=== PATIENT | female | born 2000 | race Caucasian/White ===

== ENCOUNTER 2024-10-09 09:56 | Outpatient (AMB) | payer OTHER, SELFPAY ==
--- NOTE | 2024-10-09 10:07 | MHC.OFFVIS ---
Vital Signs 10/09/24 10:08 Height 5 ft 5 in Weight 217 lb BMI 36.1 BP 136/71 Blood Pressure Location Lt brachial Position Sitting Respiration 16 Pulse 116 H Pulse Source Pulse Oximeter Pulse Oximetry (%) 96 Oxygen Delivery Method Room Air Intake Visit Reasons: Worsening back pain Adolescent Medicine Specialist Required: No Allergies No Known Allergies Allergy (Verified 10/09/24 10:08) Medication List - Last Reconciled 10/09/24 by Anabel Seo LPN cetirizine (Zyrtec) 10 mg PO DAILY PRN duloxetine 90 mg PO DAILY lamotrigine (Lamictal) 100 mg PO DAILY HPI HPI Worsening back pain: Details: History of Present Illness The patient is a 23-year-old female presenting with chronic low back pain. Her pain dates back to a diagnosis of scoliosis at age 15, which has been a recurrent issue. She notes a significant increase in pain intensity since July. Initially diagnosed with scoliosis, recent exacerbations have led to consultations for the possible placement of a temporary nerve stimulation device. Described as a sharp, stabbing sensation, her pain is located over the left sacroiliac joint, reaching an intensity of 7/10, particularly in the evenings. Previously, she experienced a debilitating pain episode two years ago, successfully managed with temporary nerve stimulation, providing relief for nearly two years. Past imaging includes X-rays, a CT scan in 2022, and an MRI completed [id number]. Despite ongoing back pain, her condition showed a positive response to nerve stimulation, allowing her to avoid pain medications and maintaining mobility since then, though she now reports worsening symptoms over the past two months. Physical therapy has not provided the desired relief, and the patient is currently considering repeating nerve stimulation to alleviate her symptoms. Pain Description - Onset: Initially diagnosed with scoliosis at age 15, current worsening since July. - Quality: Sharp, stabbing sensation. - Location: Predominantly over the left sacroiliac joint region. - Intensity: 7/10, particularly severe in the evenings. - Interference: Pain affects the ability to sleep normally and daily functioning. - Previous Relief: Temporary nerve stimulation provided significant relief for almost two years. - Exacerbating Factors: Worsens in the evening. - Relieving Factors: Previous nerve stimulation was effective. Physical Exam - Appears afebrile. - Alert and oriented. - Mood and affect appropriate. - Follows and participates in conversation appropriately. - Respiratory effort is unlabored. Results - X-rays completed previously to monitor scoliosis. - CT scan performed in 2022 for scoliosis evaluation. - MRI completed in [place]. Pain Management - Affect: Chronic pain impacting the patient's ability to sleep and daily functioning. - Analgesia: Previously using meloxicam 15 mg per day, now considering repeat nerve stimulation. - Adverse Effects: None reported. - Activities of Daily Living: Pain has interfered with normal sleep and walking in past severe episodes. - Aberrant Drug Related Behaviors: None reported. Physical Exam Vital Signs: Last Vital Signs Pulse 116 H 10/09/24 10:08 Resp 16 10/09/24 10:08 BP 136/71 10/09/24 10:08 Pulse Ox 96 10/09/24 10:08 Oxygen Delivery Method Room Air 10/09/24 10:08 BMI result Body Mass Index 36.1 Assessment & Plan Assessment & Plan (1) Scoliosis: Code(s): M41.9 - Scoliosis, unspecified Category: Medical (2) Chronic pain: Code(s): G89.29 - Other chronic pain Category: Medical Plan Plan - Request insurance authorization for repeating the left L3 medial branch temporary nerve stimulation, to be followed by right side placement. - This procedure provided extensive pain relief >80% for 2 years; no new imaging required due to the similarity of current symptoms to past successful treatment. Patient was informed and verbally consented to the use of an ambient scribe for clinic note documentation during this visit. Discussion Notes During our consultation, we reviewed the patient's chronic low back pain and her history of scoliosis. I discussed the effectiveness of the previous nerve stimulation treatment, which yielded significant relief for nearly two years. Given her recurrence of symptoms, I proposed repeating the procedure. The patient was receptive to this plan and understood the potential benefits and limitations. We agreed to pursue insurance authorization for the left L3 medial branch stimulation, followed by the right side two weeks later. The patient was informed that records regarding previous device placement would aid in planning. No further diagnostic imaging is deemed necessary at this stage. Patient Instructions - We will proceed with the insurance authorization for the repeat nerve stimulation. - Follow any instructions provided by your insurance regarding this process. - Keep track of any changes in your pain and inform us of any significant changes. Coding Level of Care Code New Pt Level 4 (11395) Diagnoses Scoliosis M41.9 Chronic pain G89.29
[2024-10-09 10:08] VITALS: BP 136/71; PULSE 116; RESP 16; O2SAT 96; BMI 36.1
== END 2024-10-09 10:45 | disposition home or self-care (01) ==
LOC: HO.PMC 09:56
PROVIDERS: Visit Provider Internal Medicine
DX: M41.9 Scoliosis, unspecified (principal); G89.29 Other chronic pain
CPT/HCPCS: 99204

== ENCOUNTER → 2024-10-09 09:56 | Outpatient (BNVA) | payer OTHER, SELFPAY | PROVIDERS: Visit Provider Internal Medicine ==

== ENCOUNTER 2025-03-30 08:42 | Outpatient (AMB) | payer OTHER, SELFPAY ==
--- OUTSIDE RECORDS SUMMARY | 2025-03-30 08:46 | XMS_ITS | Clinical Summary ---
Author Organization [facility] Address [address] [address] Phone Care Team Providers Care Commercial Title Examiner Name Role Phone Pcp, Unknown Primary Care Provider Unavailabl e Social History Tobacco Use Types Packs/Day Years Used Date Smoking Tobacco: Never Assessed Education Answer Date Recorded Are you interested in more education? Not on serina e 01/04/2024 Are you concerned about learning? Not on file 01/04/2024 No 01/04/2024 No 01/04/2024 Digital Access Answer Date Recorded No 01/04/2024 No 01/04/2024 Reliable internet access at home? Not on file 01/04/2024 Device with a working camera? Not on file Comments Unknown Sex and Gender Information Value Date Recorded Sex Assigned at Not on file Legal Sex Female 1:59 PM EDT Gender Identity Not on file Sexual Orientation Not on file Plan of Treatment Health Maintenance Due Date Last Done Comments Adult Td,Tdap Booster 2001 DEPRESSION SCREENING 2013 SMOKING Hx and SMOKELESS TOB ACCO SCREENING 2014 HPV VACCINES (1 - 3-dose series) 2016 CHLAMYDIA SCREENING 2017 MENINGOCOCCAL VACCINES (B) ( 1 of 2 - Standard) 2017 HEPATITIS C SCREENING 12/17/2019 HIV ONE-TIME SCREENING (18-6 5 YEARS) 12/17/2019 PAP SMEAR 2022 INFLUENZA VACCINE (#1) 2024 COVID-19 VACCINE (2024-2 6 season) 2025 HEPATITIS A VACCINES Aged Out No long er eligible based on patient's age to complete this topic HIB VACCINES Aged Out No longer eligi ble based on patient's age to complete this topic MENINGOCOCCAL VACCINES (ACWY) Aged Out No longer eligible based on patient's age to complete this topic PNEUMOCOCCAL VACCINES (0-49 years) Aged Out No longer eligible based on patient's age to complete this topic Medical Devices Not on file Insurance [address] [address] [employer] [facility] [employer] [facility] Care Teams Commercial Title Examiner Relationship Specialty Start Date End Date Pcp, Unknown PCP - General 01/03/24 Additional Source Comments The information contained in this document represents components of the legal health record. It is not the complete legal health record.[facility]
--- NOTE | 2025-03-30 08:57 | MHC.OFFVIS ---
Vital Signs 03/30/25 08:58 Height 5 ft 5 in Weight 207 lb BMI 34.4 BP 122/66 Blood Pressure Location Rt brachial Position Sitting Respiration 16 Pulse 104 H Pulse Source Pulse Oximeter Pulse Oximetry (%) 95 Oxygen Delivery Method Room Air Intake Visit Reasons: Follow Up Back pain Boilermaker Helper Required: No Allergies No Known Allergies Allergy (Verified 03/30/25 09:00) Medication List - Last Reconciled 03/30/25 by Anabel Seo LPN duloxetine 90 mg PO DAILY HPI HPI Follow Up Back pain: Details: History of Present Illness The patient is a 24-year-old individual presenting with chronic back pain management. The patient has a history of chronic back pain, which has been persistent despite previous interventions such as cortisone injections that provided only temporary relief. The patient has also tried other modalities like SI belts and physical therapy, but these have not been effective in managing the pain. The patient has not tried acupuncture, as it was never suggested before, and is considering this as a potential option. The patient is also exploring the possibility of using a new non-opioid pain medication, Journavx, although there are concerns about long-term effects. The patient has scoliosis, which may be contributing to the back pain, and is advised to seek scoliosis-specific physical therapy for targeted management. Pain Description - Chronic back pain with previous cortisone injections providing temporary relief - Pain management attempts include SI belts and physical therapy, with limited success - Considering acupuncture as a new treatment option - Exploring new non-opioid medication, Journavx, with concerns about long-term effects Physical Exam - Appears afebrile. - Alert and oriented. - Mood and affect appropriate. - Follows and participates in conversation appropriately. Pain Management - Affect: The patient's mood is impacted by the chronic nature of the pain and the challenges in finding effective management. - Analgesia: Previous cortisone injections provided temporary relief; considering Journavx for pain management. - Adverse Effects: Concerns about long-term effects of new medication, Journavx. - Activities of Daily Living: Pain interferes with daily activities, prompting exploration of new treatment options. - Aberrant Drug Related Behaviors: No signs of medication misuse or abuse reported. Physical Exam Vital Signs: Last Vital Signs Pulse 104 H 03/30/25 08:58 Resp 16 03/30/25 08:58 BP 122/66 03/30/25 08:58 Pulse Ox 95 11/21/25 08:58 Oxygen Delivery Method Room Air 03/30/25 08:58 BMI result Body Mass Index 34.4 Assessment & Plan Assessment & Plan (1) Scoliosis: Code(s): M41.9 - Scoliosis, unspecified Category: Medical (2) Chronic pain: Code(s): G89.29 - Other chronic pain Category: Medical Plan Plan Patient was informed and verbally consented to the use of an ambient scribe for clinic note documentation during this visit. 1. Chronic Back Pain - Continue to pursue authorization for medial branch nerve stimulation. - Explore scoliosis-specific physical therapy as a targeted intervention. - Consider trial of acupuncture as a non-invasive treatment option. - Evaluate the potential use of Journavx, a new non-opioid pain medication, while considering long-term effects. 2. Scoliosis - Seek scoliosis-specific physical therapy to address pain related to scoliosis. Discussion Notes During the visit, we discussed the ongoing challenges with insurance authorization for medial branch nerve stimulation and the need for scoliosis-specific physical therapy. I explained the potential benefits and risks of trying acupuncture and the new medication, Journavx, emphasizing the importance of considering long-term effects. We also talked about the possibility of using intrathecal pumps as a last resort if other treatments fail. The patient was advised to continue exploring these options and to follow up with any new developments. Patient Instructions - Follow up with insurance regarding authorization for medial branch nerve stimulation. - Seek scoliosis-specific physical therapy for targeted management. - Consider trying acupuncture for pain relief. - Research and consider the use of Journavx, keeping in mind potential long-term effects. Coding Level of Care Code Est Pt Level 4 (16315) Diagnoses Scoliosis M41.9 Chronic pain G89.29
[2025-03-30 08:58] VITALS: BP 122/66; PULSE 104; RESP 16; O2SAT 95; BMI 34.4
== END 2025-03-30 09:40 | disposition home or self-care (01) ==
LOC: HO.PMC 08:43
PROVIDERS: Visit Provider Internal Medicine
DX: M41.9 Scoliosis, unspecified (principal); G89.29 Other chronic pain
CPT/HCPCS: 99214